=== PATIENT | female | born 1955 | race Caucasian/White ===

== ENCOUNTER 2020-05-11 10:32 | Observation (INO) ==
[~2020-05-11 10:32] MED LIST: Total Joint Mixture (50 ml) INTRAART ONE
[2020-05-11] MEDS ORDERED: Famotidine 20 MG/2 ML VIAL IVP ONE (10:35)
[2020-05-11] MEDS ORDERED: Celecoxib 200 MG CAPSULE PO ONE (10:35)
[2020-05-11] MEDS ORDERED: *HR* Promethazine 25 MG/ML VIAL IVP PRN ×2 (10:45→14:55)
[2020-05-11] MEDS ORDERED: Ondansetron 4 MG/2 ML VIAL IVP PRN ×2 (10:45→14:55)
[2020-05-11] MEDS ORDERED: *HR* Labetalol 20 MG/4 ML SYRINGE IVP PRN (10:45)
[2020-05-11] MEDS ORDERED: *HR* Midazolam HCl 2 MG/2 ML VIAL ONE (10:47)
[2020-05-11] MEDS ORDERED: *HR* FentaNYL (PF) 100 MCG/2 ML VIAL ONE (10:48)
[2020-05-11] MEDS ORDERED: *HR* OxyCODONE Immed Rel 5 MG TABLET PO PRN (10:49)
[2020-05-11] MEDS ORDERED: *HR* HYDROmorphone (PF) 1 MG/ML SYRINGE IVP PRN (10:49)
[2020-05-11] MEDS ORDERED: *HR* OxyCODONE ER (12 HR) 10 MG TABLET PO ONE (10:49)
[2020-05-11] MEDS ORDERED: Ropivacaine/PF 0.5% 30 ML VIAL ONE (10:52)
[2020-05-11] MEDS ORDERED: CeFAZolin Syr 2,000MG/20 ML 2,000 MG/20 ML SYRINGE IVPB ONE (10:55)
[2020-05-11] MEDS ORDERED: Ringers Solution, Lactated 1,000 ML IVC SCH (11:00)
[2020-05-11] MEDS ORDERED: *HR* Propofol 200 MG/20 ML VIAL IVP ONE (11:03)
[2020-05-11] MEDS ORDERED: Lidocaine -MPF 2% 2 ML VIAL ONE (11:04)
[2020-05-11] MEDS ORDERED: *HR* Succinylcholine 200 MG/10 ML VIAL IVP ONE (11:04)
[2020-05-11] MEDS ORDERED: *HR* HYDROMORPHONE 2 MG/ML VIAL ONE (11:05)
[2020-05-11] MEDS ORDERED: Vancomycin 1,000 MG VIAL ONE ×2 (11:34→11:53)
[2020-05-11] MEDS ORDERED: Ethanol\\Acetic Acid\\Na Ace\\Ben 1,000 ML IRRIG.SOLN IR ONE (11:34)
[2020-05-11] MEDS ORDERED: Ondansetron 4 MG/2 ML VIAL ONE (12:03)
[2020-05-11] MEDS ORDERED: Dexamethasone 4 MG/ML VIAL ONE (12:03)
[2020-05-11] MEDS ORDERED: Tranexamic Acid 1,000 MG/10 ML VIAL ONE (12:04)
[2020-05-11 14:34] LABS: Hematocrit 35.3 % (35.3-44.9); Hemoglobin 11.7 g/dL (11.5-15.4)
[2020-05-11] MEDS ORDERED: Sennosides 8.6 MG TABLET PO PRN (14:55)
[2020-05-11] MEDS ORDERED: D5% in Water 1,000 ML IVC PRN (14:55)
[2020-05-11] MEDS ORDERED: Naloxone 0.4 MG/ML INJ IVP PRN (14:55)
[2020-05-11] MEDS ORDERED: *HR* Dextrose 50 % in Water (Vial) 50 ML VIAL IVP PRN (14:55)
[2020-05-11] MEDS ORDERED: Dextrose Gel 15 GM/37.5 ML TUBE PO PRN ×2 (14:55)
[2020-05-11] MEDS ORDERED: MOM Conc 10 ML UD.LIQ PO PRN (14:55)
[2020-05-11] MEDS: *HR* OxyCODONE Immed Rel 5 MG TABLET PO PRN ×2 (16:28→21:22)
[2020-05-11] MEDS: Ringers Solution, Lactated 1,000 ML IVC SCH ×2 (16:29→23:17)
[2020-05-11] MEDS: Ascorbic Acid 500 MG TABLET PO SCH (17:15)
[2020-05-11] MEDS: *HR* Metformin 500 MG TABLET PO SCH (17:38)
[2020-05-11] MEDS: Insulin LISPRO 300 UNITS/3 ML VIAL SQ SCH ×2 (17:40→21:15)
[2020-05-11] MEDS: CeFAZolin 2 GM/120 ML BAG IVPB SCH (18:41)
[2020-05-11] MEDS: amLODIPine 5 MG TABLET PO SCH (21:14)
[2020-05-11] MEDS: Metoprolol 100 MG TABLET PO SCH (21:14)
[2020-05-12] MEDS: CeFAZolin 2 GM/120 ML BAG IVPB SCH (02:42)
[2020-05-12] MEDS: *HR* OxyCODONE Immed Rel 5 MG TABLET PO PRN ×2 (03:15→07:29)
[2020-05-12 05:28] LABS: Basophils % 0.2 %; Hematocrit 31.8 % (35.3-44.9); Hemoglobin 10.8 g/dL (11.5-15.4); Immature Granulocytes % 0.4 % (0-4); Lymphocytes # 1.6 K/mcL (0.6-4.6); Lymphocytes % 9.8 %; Mean Corpuscular Hemoglobin 31.6 pg (28.0-33.3); Mean Platelet Volume 10.6 fL (9.4-12.4); Monocytes # 0.9 K/mcL (0.0-1.3); Monocytes % 5.8 %; Neutrophils # 13.6 K/mcL (1.6-8.9); Platelet Count 297 K/mcL (140-400); Red Blood Count 3.42 M/mcL (3.82-4.97); Red Cell Distribution Width 12.2 % (11.5-14.5); Segmented Neutrophils % 83.8 %; White Blood Count 16.3 K/mcL (4.3-11.1)
[2020-05-12 05:48] LABS: Calcium 8.5 mg/dL (8.6-10.3); Potassium 4.2 mEq/L (3.5-5.1)
[2020-05-12] MEDS ORDERED: 0.9 % Sodium Chloride 500 ML IVC ONE (07:52)
[2020-05-12] MEDS: Multivit/Ca/Min/Fe/FA 1 TAB TABLET PO SCH (08:26)
[2020-05-12] MEDS: *HR* Metformin 500 MG TABLET PO SCH ×2 (08:26→17:10)
[2020-05-12] MEDS: Cholecalciferol (D-3) 1,000 UNIT (25MCG) TABLET PO SCH (08:26)
[2020-05-12] MEDS: Losartan/HCTZ 50-12.5 TABLET PO SCH (08:27)
[2020-05-12] MEDS: Metoprolol 100 MG TABLET PO SCH ×2 (08:28→19:58)
[2020-05-12] MEDS: Ascorbic Acid 500 MG TABLET PO SCH ×2 (08:31→17:11)
[2020-05-12] MEDS: amLODIPine 5 MG TABLET PO SCH ×2 (08:31→19:57)
[2020-05-12] MEDS: Colestipol Hcl [Colestid] 1 GM PO SCH (08:33)
[2020-05-12] MEDS: Insulin LISPRO 300 UNITS/3 ML VIAL SQ SCH ×4 (08:33→21:52)
[2020-05-12] MEDS: FLUoxetine 20 MG CAPSULE PO SCH (08:33)
[2020-05-12] MEDS: 0.9 % Sodium Chloride 1,000 ML IVC SCH ×2 (09:31→18:09)
[2020-05-12] MEDS: Aspirin Enteric Coated 81 MG Tablet PO SCH (12:14)
[2020-05-12 13:05] LABS: BUN/Creatinine Ratio 18 (6-26); Blood Urea Nitrogen 19 mg/dL (8-23); Calcium 7.8 mg/dL (8.6-10.3); Carbon Dioxide 24 mEq/L (23-29); Chloride 95 mEq/L (98-107); Glucose 171 mg/dL (70-105); Osmolality,Calculated 270 (280-300); Potassium 3.4 mEq/L (3.5-5.1); Sodium 127 mEq/L (136-145); eGFR For African Americans > 60 (> 60); eGFR For Non-African Americans 53 (> 60)
[2020-05-12] MEDS: HYDROcodone BIT/Homatropine 5 MG TABLET PO PRN (14:16)
[2020-05-13] MEDS: Ringers Solution, Lactated 1,000 ML IVC SCH (01:20)
[2020-05-13 06:30] LABS: Basophils % 0.1 %; Eosinophils % 0.4 %; Hematocrit 25.4 % (35.3-44.9); Hemoglobin 8.6 g/dL (11.5-15.4); Immature Granulocytes % 0.3 % (0-4); Lymphocytes # 1.9 K/mcL (0.6-4.6); Lymphocytes % 21.5 %; Mean Corpuscular HGB Conc 33.9 g/dL (31.6-35.5); Mean Corpuscular Hemoglobin 31.2 pg (28.0-33.3); Monocytes # 0.9 K/mcL (0.0-1.3); Monocytes % 9.5 %; Neutrophils # 6.1 K/mcL (1.6-8.9); Platelet Count 198 K/mcL (140-400); Red Blood Count 2.76 M/mcL (3.82-4.97); Red Cell Distribution Width 12.6 % (11.5-14.5); Segmented Neutrophils % 68.2 %; White Blood Count 8.9 K/mcL (4.3-11.1)
[2020-05-13 06:47] LABS: BUN/Creatinine Ratio 19 (6-26); Blood Urea Nitrogen 15 mg/dL (8-23); Carbon Dioxide 24 mEq/L (23-29); Chloride 100 mEq/L (98-107); Glucose 159 mg/dL (70-105); Osmolality,Calculated 276 (280-300); Sodium 131 mEq/L (136-145); eGFR For African Americans > 60 (> 60); eGFR For Non-African Americans > 60 (> 60)
[2020-05-13] MEDS: Insulin LISPRO 300 UNITS/3 ML VIAL SQ SCH ×2 (08:03→11:58)
[2020-05-13] MEDS: Losartan/HCTZ 50-12.5 TABLET PO SCH (08:07)
[2020-05-13] MEDS: Cholecalciferol (D-3) 1,000 UNIT (25MCG) TABLET PO SCH (08:07)
[2020-05-13] MEDS: Aspirin Enteric Coated 81 MG Tablet PO SCH (08:08)
[2020-05-13] MEDS: *HR* Metformin 500 MG TABLET PO SCH (08:09)
[2020-05-13] MEDS: FLUoxetine 20 MG CAPSULE PO SCH (08:09)
[2020-05-13] MEDS: Metoprolol 100 MG TABLET PO SCH (08:09)
[2020-05-13] MEDS: Multivit/Ca/Min/Fe/FA 1 TAB TABLET PO SCH (08:10)
[2020-05-13] MEDS: Colestipol Hcl [Colestid] 1 GM PO SCH (08:10)
[2020-05-13] MEDS: amLODIPine 5 MG TABLET PO SCH (08:10)
[2020-05-13] MEDS: Ascorbic Acid 500 MG TABLET PO SCH (08:10)
[2020-05-13] MEDS: HYDROcodone BIT/Homatropine 5 MG TABLET PO PRN (08:14)
[2020-05-13 12:19] VITALS: BP 108/71
== END 2020-05-13 16:00 ==
LOC: SAMDAY 10:32 → 3NENU 10:32
PROVIDERS: ADMIT Orthopaedic Surgery; ATTEND Orthopaedic Surgery

== ENCOUNTER 2022-03-25 03:48 | Inpatient (IN) ==
[2022-03-25 04:57] LABS: Adenovirus Not Detected (Not Detect); Coronavirus 229E Not Detected (Not Detect); Coronavirus HKU1 Not Detected (Not Detect); Coronavirus NL63 Not Detected (Not Detect); Coronavirus OC43 Not Detected (Not Detect); Human Metapneumovirus Not Detected (Not Detect); Human Rhinovirus/Enterovirus Not Detected (Not Detect); Influenza A Subtype 2009 H1 Not Detected (Not Detect); SARS-CoV-2 Not Detected (Not Detect)
[2022-03-25 04:58] LABS: Bordetella Pertussis Not Detected (Not Detect); Chlamydophila pneumoniae Not Detected (Not Detect); Influenza B Not Detected (Not Detect); Mycoplasma pneumoniae Not Detected (Not Detect); Parainfluenza Virus 1 Not Detected (Not Detect); Parainfluenza Virus 2 Not Detected (Not Detect); Parainfluenza Virus 3 DETECTED (Not Detect); Parainfluenza Virus 4 Not Detected (Not Detect); Respiratory Syncytial Virus Not Detected (Not Detect)
[2022-03-25] MEDS ORDERED: Azithromycin 250 MG TABLET PO ONE (05:25)
[2022-03-25] MEDS ORDERED: Albuterol 2.5 MG/3 ML NEBULIZER IH ONE (05:25)
[2022-03-25] MEDS ORDERED: cefTRIAXone 1,000 MG in 0.9 % Sodium Chloride Mini Bag 100 ML IVPB ONE (05:25)
[2022-03-25 05:37] LABS: Basophils % 0.2 %; Eosinophils % 0.1 %; Hematocrit 36.8 % (35.3-44.9); Hemoglobin 12.4 g/dL (11.5-15.4); Immature Granulocytes % 0.8 % (0-4); Lymphocytes # 2.4 K/mcL (0.6-4.6); Lymphocytes % 9.7 %; Mean Corpuscular HGB Conc 33.7 g/dL (31.6-35.5); Mean Corpuscular Hemoglobin 28.4 pg (28.0-33.3); Mean Corpuscular Volume 84.2 fL (83.0-100.0); Mean Platelet Volume 11.2 fL (9.4-12.4); Monocytes # 2.3 K/mcL (0.0-1.3); Monocytes % 9.5 %; Platelet Count 441 K/mcL (140-400); Red Blood Count 4.37 M/mcL (3.82-4.97); Red Cell Distribution Width 13.3 % (11.5-14.5); Segmented Neutrophils % 79.7 %
[2022-03-25 05:38] LABS: Basophils # 0.1 K/mcL (0.0-0.2); Neutrophils # 19.5 K/mcL (1.6-8.9); White Blood Count 24.5 K/mcL (4.3-11.1)
[2022-03-25 06:07] LABS: Albumin 3.7 g/dL (3.5-5.7); Albumin/Globulin Ratio 0.8 (1.1-2.2); Bilirubin,Direct 0.1 mg/dL (0.0-0.2); Bilirubin,Indirect 0.5 mg/dL (0.0-1.0); Bilirubin,Total 0.6 mg/dL (0.3-1.0); Calcium 9.1 mg/dL (8.6-10.3); Globulin 4.4 g/dL (2.4-3.5); Potassium 3.1 mEq/L (3.5-5.1); Total Protein 8.1 g/dL (6.4-8.9); Troponin I 0.07 ng/mL (< 0.04)
[2022-03-25] MEDS ORDERED: Piperacillin/Tazobactam 3.375 GM in 0.9 % Sodium Chloride Mini Bag 100 ML IVPB ONE (06:30)
[2022-03-25] MEDS ORDERED: Vancomycin 1,500 MG/265 ML IV.SOLN IVPB ONE (06:30)
[2022-03-25] MEDS ORDERED: Iopamidol - 370 500 ML MLS IVP ONE (06:39)
[2022-03-25] MEDS ORDERED: 0.9 % Sodium Chloride 1,000 ML IVC ONE (06:40)
[2022-03-25] MEDS ORDERED: Naloxone 0.4 MG/ML INJ IVP PRN (07:56)
[2022-03-25] MEDS ORDERED: Ondansetron 4 MG/2 ML VIAL IVP PRN (08:58)
[2022-03-25] MEDS ORDERED: Benzonatate 100 MG CAPSULE PO PRN (09:04)
[2022-03-25] MEDS ORDERED: Acetaminophen 325 MG TABLET PO PRN (09:05)
[2022-03-25] MEDS ORDERED: Ipratropium/Albuterol Neb 3 ML IH PRN (09:05)
[2022-03-25] MEDS ORDERED: Ringers Solution, Lactated 1,000 ML IVC SCH (09:15)
[2022-03-25] MEDS ORDERED: Perflutren Lipid Microsphere 1.3 ML in 0.9 % Sodium Chloride 8.7 ML IVP PRN (09:16)
[2022-03-25] MEDS ORDERED: Dextrose Gel 15 GM/37.5 ML TUBE PO PRN ×2 (09:17)
[2022-03-25] MEDS ORDERED: D5% in Water 1,000 ML IVC PRN (09:17)
[2022-03-25] MEDS ORDERED: *HR* Dextrose 50 % in Water (Syg) 50 ML SYRINGE IVP PRN (09:17)
[2022-03-25 10:21] LABS: Calcium 8.2 mg/dL (8.6-10.3); Troponin I 0.03 ng/mL (< 0.04)
[2022-03-25] MEDS ORDERED: 0.9 % Sodium Chloride w KCl 40 MEQ/1,000 ML MLS IVC SCH (11:15)
[2022-03-25] MEDS: Aspirin 81 MG TAB.CHEW PO SCH (12:05)
[2022-03-25] MEDS: Insulin LISPRO 300 UNITS/3 ML VIAL SUBQ SCH ×3 (14:16→22:33)
[2022-03-25] MEDS: 0.9 % Sodium Chloride w KCl 40 MEQ/1,000 ML MLS IVC SCH ×2 (14:16→22:30)
[2022-03-25 15:13] LABS: Bilirubin,Urine Negative (Negative); Blood,Urine Negative (Negative); Clarity,Urine Clear (Clear); Color,Urine Colorless (Yellow); Glucose,Urine (UA) 500 mg/dL (Normal); Ketones,Urine Negative (Negative); Leukocyte Esterase,Urine Small (Negative); Mucus,Urine Few per lpf (None-Few); Nitrite,Urine Negative (Negative); PH,Urine 6.5 pH Units (5.0-8.0); Protein,Urine Negative (Neg-Trace); RBC,Urine 0-3 per hpf (0-3); Specific Gravity,Urine > 1.030 (1.010-1.025); Squamous Epithelial Cell,Urine Few per hpf (None-Few); Urobilinogen,Urine Normal (Normal)
[2022-03-25 15:14] LABS: Creatinine,Urine 52 mg/dL; Sodium, Urine < 10.0 mEq/L
[2022-03-25] MEDS: methylPREDNISolone 125 MG/2 ML VIAL IVP SCH (18:54)
[2022-03-25 21:44] LABS: BUN/Creatinine Ratio 14 (6-26); Blood Urea Nitrogen 13 mg/dL (8-23); Calcium 8.2 mg/dL (8.6-10.3); Carbon Dioxide 21 mEq/L (23-29); Chloride 100 mEq/L (98-107); Glucose 209 mg/dL (70-105); Osmolality,Calculated 276 (280-300); Potassium 3.4 mEq/L (3.5-5.1); Sodium 130 mEq/L (136-145); eGFR For African Americans > 60 (> 60); eGFR For Non-African Americans > 60 (> 60)
[2022-03-26] MEDS: methylPREDNISolone 125 MG/2 ML VIAL IVP SCH (01:04)
[2022-03-26] MEDS: 0.9 % Sodium Chloride w KCl 40 MEQ/1,000 ML MLS IVC SCH (06:39)
[2022-03-26 08:51] LABS: Basophils % 0.1 %; Hematocrit 32.5 % (35.3-44.9); Immature Granulocytes % 1.1 % (0-4); Lymphocytes # 0.7 K/mcL (0.6-4.6); Lymphocytes % 4.4 %; Mean Corpuscular HGB Conc 33.2 g/dL (31.6-35.5); Mean Corpuscular Hemoglobin 28.3 pg (28.0-33.3); Mean Corpuscular Volume 85.3 fL (83.0-100.0); Mean Platelet Volume 10.7 fL (9.4-12.4); Monocytes # 0.1 K/mcL (0.0-1.3); Monocytes % 0.9 %; Neutrophils # 14.4 K/mcL (1.6-8.9); Platelet Count 334 K/mcL (140-400); Red Blood Count 3.81 M/mcL (3.82-4.97); Red Cell Distribution Width 14.1 % (11.5-14.5); Segmented Neutrophils % 93.5 %; White Blood Count 15.4 K/mcL (4.3-11.1)
[2022-03-26 08:53] LABS: Hemoglobin 10.8 g/dL (11.5-15.4)
[2022-03-26] MEDS: cefTRIAXone 1,000 MG in 0.9 % Sodium Chloride 10 ML IVP SCH (08:58)
[2022-03-26] MEDS: Aspirin 81 MG TAB.CHEW PO SCH (08:58)
[2022-03-26] MEDS: Azithromycin 250 MG TABLET PO SCH (08:58)
[2022-03-26] MEDS: Insulin LISPRO 300 UNITS/3 ML VIAL SUBQ SCH ×4 (09:01→20:55)
[2022-03-26] MEDS: Insulin DETEMIR 100 UNIT/ML X5UNITS SUBQ SCH ×2 (09:02→20:54)
[2022-03-26 09:05] LABS: Blood Urea Nitrogen 14 mg/dL (8-23); Calcium 8.3 mg/dL (8.6-10.3); Carbon Dioxide 20 mEq/L (23-29); Chloride 103 mEq/L (98-107); Chol/HDL Ratio 3.6 (0-4.9); Cholesterol 114 mg/dL (< 200); Glucose 327 mg/dL (70-105); HDL Cholesterol 32 mg/dL (40-59); LDL Cholesterol,Calculated 69 mg/dL (< 100); Osmolality,Calculated 287 (280-300); Potassium 3.8 mEq/L (3.5-5.1); Sodium 132 mEq/L (136-145); Triglycerides 65 mg/dL (< 150)
[2022-03-26 10:31] LABS: A.calcoaceticus-baumannii cplx Not Detected (Not Detect); Bacteroides fragilis by PCR Not Detected (Not Detect); Candida albicans by PCR Not Detected (Not Detect); Candida auris by PCR Not Detected (Not Detect); Candida glabrata by PCR Not Detected (Not Detect); Candida krusei by PCR Not Detected (Not Detect); Candida parapsilosis by PCR Not Detected (Not Detect); Candida tropicalis by PCR Not Detected (Not Detect); Crypto. neoformans/gattii PCR Not Detected (Not Detect); Enterobacter cloacae Cmplx PCR Not Detected (Not Detect); Enterobacterales by PCR Not Detected (Not Detect); Enterococcus faecalis by PCR Not Detected (Not Detect); Enterococcus faecium by PCR Not Detected (Not Detect); Escherichia coli by PCR Not Detected (Not Detect); Klebs. pneumoniae group by PCR Not Detected (Not Detect); Klebsiella aerogenes by PCR Not Detected (Not Detect); Klebsiella oxytoca by PCR Not Detected (Not Detect); Proteus by PCR Not Detected (Not Detect); Pseudomonas aeruginosa by PCR Not Detected (Not Detect); Salmonella species by PCR Not Detected (Not Detect); Serratia marcescens by PCR Not Detected (Not Detect); Staph epidermidis by PCR Not Detected (Not Detect); Staph lugdunensis by PCR Not Detected (Not Detect); Staphylococcus aureus by PCR Not Detected (Not Detect); Staphylococcus by PCR DETECTED (Not Detect); Stenotrophomonas maltophilia Not Detected (Not Detect); Streptococcus agalactiae(B)PCR Not Detected (Not Detect); Streptococcus by PCR Not Detected (Not Detect); Streptococcus pneumoniae PCR Not Detected (Not Detect); Streptococcus pyogenes (A) PCR Not Detected (Not Detect)
[2022-03-26 12:08] LABS: Estimated Average Glucose 194 mg/dl; Hemoglobin A1C 8.4 %
[2022-03-26 13:01] LABS: BUN/Creatinine Ratio 18 (6-26); eGFR For African Americans > 60 (> 60); eGFR For Non-African Americans > 60 (> 60)
[2022-03-26] MEDS: amLODIPine 5 MG TABLET PO SCH (20:50)
[2022-03-27 07:03] LABS: Hematocrit 31.5 % (35.3-44.9); Mean Corpuscular HGB Conc 31.7 g/dL (31.6-35.5); Mean Corpuscular Hemoglobin 27.5 pg (28.0-33.3); Mean Corpuscular Volume 86.5 fL (83.0-100.0); Mean Platelet Volume 10.4 fL (9.4-12.4); Platelet Count 357 K/mcL (140-400); Red Blood Count 3.64 M/mcL (3.82-4.97); Red Cell Distribution Width 14.3 % (11.5-14.5); White Blood Count 18.9 K/mcL (4.3-11.1)
[2022-03-27 07:13] LABS: BUN/Creatinine Ratio 16 (6-26); Blood Urea Nitrogen 13 mg/dL (8-23); Calcium 8.5 mg/dL (8.6-10.3); Carbon Dioxide 23 mEq/L (23-29); Chloride 105 mEq/L (98-107); Glucose 184 mg/dL (70-105); Osmolality,Calculated 285 (280-300); Potassium 3.4 mEq/L (3.5-5.1); Sodium 135 mEq/L (136-145); eGFR For African Americans > 60 (> 60); eGFR For Non-African Americans > 60 (> 60)
[2022-03-27] MEDS: Insulin LISPRO 300 UNITS/3 ML VIAL SUBQ SCH ×4 (08:12→20:33)
[2022-03-27] MEDS: FLUoxetine 20 MG CAPSULE PO SCH (08:12)
[2022-03-27] MEDS: Azithromycin 250 MG TABLET PO SCH (08:13)
[2022-03-27] MEDS: amLODIPine 5 MG TABLET PO SCH ×2 (08:13→20:33)
[2022-03-27] MEDS: Insulin DETEMIR 100 UNIT/ML X5UNITS SUBQ SCH ×2 (08:13→20:35)
[2022-03-27] MEDS: Cholecalciferol (D-3) 1,000 UNIT (25MCG) TABLET PO SCH (08:13)
[2022-03-27] MEDS: Aspirin 81 MG TAB.CHEW PO SCH (08:13)
[2022-03-27] MEDS: cefTRIAXone 1,000 MG in 0.9 % Sodium Chloride 10 ML IVP SCH (10:15)
[2022-03-28 03:31] LABS: Hematocrit 29.6 % (35.3-44.9); Hemoglobin 9.6 g/dL (11.5-15.4); Mean Corpuscular HGB Conc 32.4 g/dL (31.6-35.5); Mean Corpuscular Hemoglobin 28.6 pg (28.0-33.3); Mean Corpuscular Volume 88.1 fL (83.0-100.0); Mean Platelet Volume 10.7 fL (9.4-12.4); Platelet Count 345 K/mcL (140-400); Red Blood Count 3.36 M/mcL (3.82-4.97); Red Cell Distribution Width 14.4 % (11.5-14.5); White Blood Count 14.1 K/mcL (4.3-11.1)
[2022-03-28 03:42] LABS: BUN/Creatinine Ratio 13 (6-26); Blood Urea Nitrogen 11 mg/dL (8-23); Calcium 8.2 mg/dL (8.6-10.3); Carbon Dioxide 22 mEq/L (23-29); Chloride 103 mEq/L (98-107); Glucose 127 mg/dL (70-105); Osmolality,Calculated 279 (280-300); Potassium 3.3 mEq/L (3.5-5.1); Sodium 134 mEq/L (136-145); eGFR For African Americans > 60 (> 60); eGFR For Non-African Americans > 60 (> 60)
[2022-03-28] MEDS: Insulin LISPRO 300 UNITS/3 ML VIAL SUBQ SCH ×4 (08:13→20:46)
[2022-03-28] MEDS: Insulin DETEMIR 100 UNIT/ML X5UNITS SUBQ SCH ×2 (08:23→20:46)
[2022-03-28] MEDS: Cholecalciferol (D-3) 1,000 UNIT (25MCG) TABLET PO SCH (08:23)
[2022-03-28] MEDS: amLODIPine 5 MG TABLET PO SCH ×2 (08:24→20:47)
[2022-03-28] MEDS: Azithromycin 250 MG TABLET PO SCH (08:24)
[2022-03-28] MEDS: FLUoxetine 20 MG CAPSULE PO SCH (08:24)
[2022-03-28] MEDS: cefTRIAXone 1,000 MG in 0.9 % Sodium Chloride 10 ML IVP SCH (08:24)
[2022-03-28] MEDS: Aspirin 81 MG TAB.CHEW PO SCH (08:24)
[2022-03-29 03:52] VITALS: O2SAT 94
[2022-03-29 06:00] LABS: Hemoglobin 10.1 g/dL (11.5-15.4); Mean Corpuscular HGB Conc 32.6 g/dL (31.6-35.5); Mean Corpuscular Hemoglobin 28.5 pg (28.0-33.3); Mean Corpuscular Volume 87.3 fL (83.0-100.0); Mean Platelet Volume 10.6 fL (9.4-12.4); Platelet Count 348 K/mcL (140-400); Red Blood Count 3.55 M/mcL (3.82-4.97); Red Cell Distribution Width 14.2 % (11.5-14.5); White Blood Count 10.6 K/mcL (4.3-11.1)
[2022-03-29 06:55] LABS: BUN/Creatinine Ratio 8 (6-26); Blood Urea Nitrogen 7 mg/dL (8-23); Calcium 8.2 mg/dL (8.6-10.3); Carbon Dioxide 24 mEq/L (23-29); Chloride 104 mEq/L (98-107); Glucose 142 mg/dL (70-105); Osmolality,Calculated 284 (280-300); Potassium 3.4 mEq/L (3.5-5.1); Sodium 137 mEq/L (136-145); eGFR For African Americans > 60 (> 60); eGFR For Non-African Americans > 60 (> 60)
[2022-03-29 07:27] VITALS: BP 153/81; PULSE 70; TEMP 97.9
[2022-03-29] MEDS: Aspirin 81 MG TAB.CHEW PO SCH (08:03)
[2022-03-29] MEDS: amLODIPine 5 MG TABLET PO SCH (08:03)
[2022-03-29] MEDS: Cholecalciferol (D-3) 1,000 UNIT (25MCG) TABLET PO SCH (08:03)
[2022-03-29] MEDS: Azithromycin 250 MG TABLET PO SCH (08:03)
[2022-03-29] MEDS: Insulin DETEMIR 100 UNIT/ML X5UNITS SUBQ SCH (08:03)
[2022-03-29] MEDS: Insulin LISPRO 300 UNITS/3 ML VIAL SUBQ SCH (08:05)
[2022-03-29] MEDS: FLUoxetine 20 MG CAPSULE PO SCH (08:08)
[2022-03-29] MEDS: cefTRIAXone 1,000 MG in 0.9 % Sodium Chloride 10 ML IVP SCH (08:27)
== END 2022-03-29 12:00 | disposition home or self-care (01) | DRG 871 ==
LOC: 3ANU 03:48 → EMEROOARM 03:48 → SUATTDRO 07:02 → 3ANU 07:49
PROVIDERS: ADMIT Internal Medicine; ATTEND Internal Medicine